=== PATIENT | female | born 1945 | race American Indian/Alaskan Native ===

== ENCOUNTER 2017-04-10 15:29 | Emergency (ER) | payer MEDICARE ==
[2017-04-10 16:38] LABS: Basophils % (Auto) 0.6 % (0.0-1.8); Hematocrit 35.7 % (30.3-42.9); Hemoglobin 12.1 gm/dl (10.1-14.3); Lymphocytes # (Auto) 1.2 K/mm3 (1.2-5.4); Lymphocytes % (Auto) 17.1 % (13.4-35.0); Mean Corpuscular HGB Conc 34 % (30-34); Mean Corpuscular Hemoglobin 30 pg (28-32); Mean Corpuscular Volume 89 fl (79-97); Monocytes # (Auto) 0.3 K/mm3 (0.0-0.8); Monocytes % (Auto) 5.2 % (0.0-7.3); Platelet Count 280 K/mm3 (140-440); Red Blood Count 4.03 M/mm3 (3.65-5.03); Red Cell Distribution Width 13.8 % (13.2-15.2)
[2017-04-10 16:46] LABS: Alanine Aminotransferase 13 units/L (7-56); Albumin 4.7 g/dL (3.9-5); BUN/Creatinine Ratio 36; Blood Urea Nitrogen 25 mg/dL (7-17); Calcium 9.4 mg/dL (8.4-10.2); Hemolysis Index 9
[2017-04-10 18:49] LABS: Bilirubin,Urine NEG (Negative); Blood,Urine MOD (Negative); Color,Urine Yellow (Yellow); Mucus,Urine 2+ /HPF; Protein,Urine <15 mg/dL mg/dL (Negative); Urobilinogen,Urine < 2.0 mg/dL (<2.0)
[2017-04-10] MEDS ORDERED: MORPHINE IV ONE (22:36)
[2017-04-10] MEDS ORDERED: NACL 0.9% 500 ML 500 ML IV ONE (22:36)
[2017-04-10] MEDS ORDERED: ZOFRAN IV ONE (22:36)
[2017-04-10] MEDS ORDERED: TYLENOL #3 PO ONE (23:00)
--- NOTE | 2017-04-10 23:01 | Emergency Department Report ---
HPI - General Chief Complaint: Nausea/Vomiting/Diarrhea Time Seen by Provider: 04/10/17 21:24 - HPI HPI: The patient's is a 71-year-old female whom presents for evaluation of abdominal and flank pain and feeling illl. The patient reports 3 days of left flank and lateral abdominal pain, intermittent, 10/10 in severity when present, lasting for seconds to 1 minute at a time, sharp and burning in quality, radiating from the left flank into the abdomen. She reports associated nausea and nonbilious, nonbloody emesis. The patient denies fever, chills, night sweats, diarrhea, blood in the stool, dark tarry stool, dysuria, hematuria, flank pain, genital discharge, inability to pass flatus. ED Past Medical Hx - Past Medical History Hx Hypertension: Yes Hx Diabetes: Yes (diet controlled) Additional medical history: liver cyst,elevated cholesterol - Surgical History Additional Surgical History: back surgery,benign mass left kidney,hysterectomy, biopsy bilateral breast - Social History Smoking Status: Never Smoker Substance Use Type: None - Medications Home Medications: Home Medications Medication Instructions Recorded Confirmed Last Taken Type Acetaminophen/Codeine [Tylenol #3] 1 tab PO Q6H PRN #14 tab 04/11/17 Unknown Rx Gabapentin [Neurontin] 100 mg PO BID #20 capsule 04/11/17 Unknown Rx Ondansetron [Zofran TAB] 4 mg PO Q8HR PRN #20 tablet 04/11/17 Unknown Rx ED Review of Systems ROS: Stated complaint: BILATERAL ARM PAIN,LEFT FLANK PAIN Other details as noted in HPI Constitutional: denies: fever ENT: denies: throat or neck pain Respiratory: denies: cough, shortness of breath Cardiovascular: denies: chest pain Endocrine: denies unexplained weight loss or gain Gastrointestinal: reports abdominal pain, nausea Genitourinary: denies: dysuria Musculoskeletal: denies: leg swelling Skin: denies: rash Neurological: denies: headache Hematological/Lymphatic: denies: easy bleeding or easy bruising Psych: denies sadness or hopelessness Physical Exam - Physical Exam Vital Signs: Vital Signs 04/10/17 04/10/17 04/10/17 15:34 21:33 21:40 Temperature 98 F Pulse Rate 86 76 Respiratory 20 17 16 Rate Blood Pressure 160/103 164/79 O2 Sat by Pulse 98 98 Oximetry 04/10/17 04/10/17 21:41 22:00 Temperature Pulse Rate 76 Respiratory 16 Rate Blood Pressure 182/84 O2 Sat by Pulse 98 Oximetry Physical Exam: General: well-nourished, well-developed, no acute distress Head: Normocephalic, atraumatic Eyes: normal sclera ENT: Mucous membranes are pale and dry Neck: No neck stiffness, no cervical adenopathy Respiratory: Breath sounds equal bilaterally, no wheezing, rales, or rhonchi Cardio: S1 and S2 present, no murmurs, rubs, gallops, capillary refill is delayed Abdomen: Normoactive bowel sounds, soft abdomen, left lower quadrant tenderness to palpation present, no rigidity, no guarding or rebound tenderness Chest WALL/Back: No tenderness to palpation of the chest wall, left CVA tenderness with percussion Musc: No pitting edema Skin: No rash Neuro: no facial drooping, normal speech Psych: Normal affect ED Course Vital Signs 04/10/17 04/10/17 04/10/17 15:34 21:33 21:40 Temperature 98 F Pulse Rate 86 76 Respiratory 20 17 16 Rate Blood Pressure 160/103 164/79 O2 Sat by Pulse 98 98 Oximetry 04/10/17 04/10/17 21:41 22:00 Temperature Pulse Rate 76 Respiratory 16 Rate Blood Pressure 182/84 O2 Sat by Pulse 98 Oximetry ED Medical Decision Making - Lab Data Result diagrams: 04/10/17 15:45 04/10/17 15:45 - Medical Decision Making The patient was seen and examined by myself. The patient is placed on a manager cardiac cath and continuous pulse ox. On initial evaluation, the patient was found to be in no distress. Evaluation orders are placed. The patient given a tablet of Tylenol 3 for her pain. Lab results were non-concerning including WBC , hemoglobin, hematocrit, electrolytes, renal function, LFTs, lipase, and urinalysis. CT scan of the abdomen and pelvis exhibits is negative for acute emergent disease process. The patient was reevaluated and reported that their symptoms were markedly improved. The patient is stable for discharge with outpatient follow-up. The patient is given follow-up and return instructions. The patient expressed understanding and agreed with the plan. The patient is discharged in stable condition. Critical care attestation.: If time is entered above; I have spent that time in minutes in the direct care of this critically ill patient, excluding procedure time. ED Disposition Clinical Impression: Abdominal pain, acute, left lower quadrant, Nausea and vomiting in adult Neuropathy, peripheral Qualifiers: Peripheral neuropathy type: mononeuropathy, unspecified Qualified Code(s): G58.9 - Mononeuropathy, unspecified Disposition: TO HOME OR SELFCARE Is pt being admited?: No Does the pt Need Aspirin: No Condition: Stable Instructions: Peripheral Neuropathy (ED), Acute Abdominal Pain (ED), Gastroenteritis (ED), Acute Nausea and Vomiting (ED) Prescriptions: Gabapentin [Neurontin] 100 mg PO BID #20 capsule Referrals: KERI JIMENEZ MD [Primary Care Provider] - 3-5 Days AD VILLANUEVA MD [Staff Physician] - 3-5 Days Time of Disposition: 23:01
--- NOTE | 2017-04-10 23:13 | Cat Scan Report ---
FINAL REPORT EXAM: CT ABDOMEN PELVIS WO CON HISTORY: left flank and LLQ pain COMPARISON: None available. TECHNIQUE: Contiguous axial images were obtained. Additional sagittal and coronal reformatted images were obtained. FINDINGS: Mild linear atelectasis or scarring at the lung bases. Multiple benign hepatic cysts. Largest cyst is within the right hepatic lobe measuring 3.0 x 2.1 centimeters. Cholelithiasis. No gross inflammatory changes the gallbladder. Spleen, pancreas, adrenal glands are grossly unremarkable. There is a hyperdense lesion at the anterior margin left kidney measuring 6 millimeters compatible with benign hyperdense cyst. No nephrolithiasis or hydronephrosis. Aorta is normal in caliber. Moderate severe calcification of the aorta. No distal ureteral or urinary bladder calculi. Mild wall thickening the urinary bladder which may relate to its decompressed state. No adjacent fat stranding or fluid. Uterus is surgically absent. No free fluid lymphadenopathy in the pelvic cavity. Mild gas-filled distension of the distal rectosigmoid colon which may be a transient finding. No fat stranding or fluid or wall thickening is suggest acute inflammation of bowel. Moderate stool in the colon. No bowel obstruction. The appendix is normal in caliber. Prior posterior fusion at the L3 through L5 levels and anterior fusion at the L4-L5 level. Prior decompressive laminectomies at the L3-L4 and L4-L5 levels. IMPRESSION: Mild wall thickening the urinary bladder which may relate to its decompressed state. No adjacent fat stranding or fluid. Correlation with urinalysis suggested to ensure there is no subtle inflammation. No obstructive uropathy or urolithiasis. No other acute findings. Large and small bowel loops normal in caliber. Moderate stool in the colon. The appendix is normal in caliber. Mild gas-filled prominence of the rectosigmoid colon which may be a transient finding.
[2017-04-11] MEDS ORDERED: REGLAN IV ONE (01:01)
[2017-04-11 01:12] VITALS: BP 151/67
== END 2017-04-11 01:20 | disposition home or self-care (01) ==
LOC: ED 15:29
DX: R10.32 Left lower quadrant pain (principal); R11.2 Nausea with vomiting, unspecified; G62.9 Polyneuropathy, unspecified; I10 Essential (primary) hypertension; E11.9 Type 2 diabetes mellitus without complications; E78.00 Pure hypercholesterolemia, unspecified; Z90.710 Acquired absence of both cervix and uterus; Z88.0 Allergy status to penicillin
CPT/HCPCS: 36415; 74176; 80053; 81001; 85025; 96374; 96375; 99284; J2405; J2765; J7040